=== PATIENT | male | born 1980 | race Caucasian/White ===

== ENCOUNTER 2017-09-12 22:13 | Emergency (ER) | payer OTHER ==
[2017-09-12 22:30] VITALS: RESP 18
[2017-09-12] MEDS ORDERED: diphenhydrAMINE 25 MG CAP PO STA (23:25)
[2017-09-12] MEDS ORDERED: predniSONE 20 MG TAB PO STA (23:25)
--- NOTE | 2017-09-13 00:07 | ED ---
Allergic Reaction HPI - General Chief complaint: Allergic Reaction Stated complaint: eye swelling, poss allergic rxn Time Seen by Provider: 09/12/17 23:04 Source: patient Mode of arrival: ambulatory Limitations: no limitations - History of Present Illness Initial Comments: Patient presents with a chief complaint of possible ALLERGIC reaction. Patient does not a new floor rug that was previously used, but his house, and after playing with his son on the rug he developed swelling of his right eye. Patient states that he has a lot of environmental ALLERGIES including penicillin gravid guinea pigs and he thinks that there may have been dander on the rug. The patient states that he took some Benadryl at home and since that time the swelling has gotten much better. He doesn't describe any pain currently. He cannot identify any other aggravating or alleviating factors. The patient states that overall his symptoms have improved since onset. - Related Data Home Medications Medication Instructions Recorded Confirmed Albuterol Inhaler [Ventolin Hfa 2 puff INHALATION RT-Q6H PRN 05/15/16 09/12/17 Inhaler] Ibuprofen [Motrin] 800 mg PO TID PRN 05/15/16 09/12/17 diphenhydrAMINE HCL [Benadryl] 25 mg PO BID PRN 09/12/17 09/12/17 Previous Rx's Medication Instructions Recorded diphenhydrAMINE [Benadryl] 50 mg PO TID PRN #30 capsule 09/13/17 predniSONE 50 mg PO DAILY #4 tab 09/13/17 Allergies Allergy/AdvReac Type Severity Reaction Status Date / Time No Known Allergies Allergy Verified 09/12/17 22:57 Review of Systems ROS Statement: Those systems with pertinent positive or pertinent negative responses have been documented in the HPI. ROS Other: All systems not noted in ROS Statement are negative. Constitutional: Denies: fever ENT: Denies: throat pain Respiratory: Denies: cough, dyspnea Cardiovascular: Denies: chest pain Gastrointestinal: Denies: abdominal pain, nausea, vomiting Genitourinary: Denies: dysuria Skin: Denies: rash Neurological: Denies: headache Past Medical History Past Medical History: Asthma History of Any Multi-Drug Resistant Organisms: None Reported Past Surgical History: No Surgical Hx Reported Past Psychological History: No Psychological Hx Reported Smoking Status: Current every day smoker Past Alcohol Use History: None Reported Past Drug Use History: None Reported General Exam Limitations: no limitations General appearance: alert, in no apparent distress Head exam: Present: atraumatic, normocephalic Eye exam: Present: PERRL, EOMI, conjunctival injection, periorbital swelling, other (Patient has swelling of the conjunctiva along with periorbital swelling.) ENT exam: Present: normal exam, normal oropharynx, mucous membranes moist Respiratory exam: Present: normal lung sounds bilaterally. Absent: wheezes Cardiovascular Exam: Present: regular rate, normal rhythm GI/Abdominal exam: Present: soft. Absent: distended, tenderness Rectal exam: Present: deferred Neurological exam: Present: alert, oriented X3 Psychiatric exam: Present: normal affect, normal mood Skin exam: Present: warm, dry, intact Course Vital Signs 09/12/17 22:26 Temperature 98.6 F Pulse Rate 88 Respiratory 18 Rate Blood Pressure 142/84 O2 Sat by Pulse 100 Oximetry Medical Decision Making - Medical Decision Making Patient presents with a chief complaint of a possible ALLERGIC reaction. History and physical examination most consistent with contact dermatitis of the right eye. Patient took Benadryl prior to arrival and states that his symptoms are improving. She was given another 25 mg of Benadryl along with 60 mg of prednisone. After a period of observation patient is feeling improved on reevaluation. At this time, patient is stable for discharge. He'll be prescribed Benadryl and prednisone for outpatient use. He was instructed to follow-up with primary care and to avoid his contact allergens. Patient was given explicit signs and symptoms that should prompt a return visit to the emergency department. He states understanding and is stable for discharge. Disposition Clinical Impression: Allergic reaction, Contact dermatitis Disposition: HOME SELF-CARE Condition: Good Instructions: Anaphylaxis (ED) Prescriptions: diphenhydrAMINE [Benadryl] 50 mg PO TID PRN #30 capsule PRN Reason: swelling, itching predniSONE 50 mg PO DAILY #4 tab Referrals: Joe David MD [Primary Care Provider] - 1-2 days
[2017-09-13 00:15] VITALS: BP 123/70; PULSE 60; TEMP 98.2
== END 2017-09-13 00:13 | disposition home or self-care (01) ==
LOC: EC 22:13
DX: L23.9 Allergic contact dermatitis, unspecified cause (principal); F17.200 Nicotine dependence, unspecified, uncomplicated
CPT/HCPCS: 99283; J7512

== ENCOUNTER 2019-10-03 16:41 | Emergency (ER) | payer OTHER ==
[2019-10-03 16:46] VITALS: BP 128/72; PULSE 78; RESP 20; TEMP 97.7
[2019-10-03] MEDS ORDERED: IBUPROFEN 800 MG TAB PO STA (17:07)
--- NOTE | 2019-10-03 17:29 | ED ---
Trauma HPI - General Chief Complaint: Extremity Injury, Upper Stated Complaint: [facility] finger injury Time Seen by Provider: 10/03/19 16:52 Source: patient Mode of arrival: ambulatory Limitations: no limitations - History of Present Illness Initial Comments: She is a 39-year-old male presenting to emergency Department with a chief complaint of finger injury. Patient states he was at work when he was using a pipe to an accident a lateral pressure on top of a tubal which was sitting on top of his right fourth digit. Patient states he has developed a hematoma under the right fourth nail. Patient reports a throbbing pain whenever the hand is below heart level. Patient denies taking medication to alleviate the symptoms. Patient denies any numbness or tingling - Related Data Home Medications Medication Instructions Recorded Confirmed Albuterol Inhaler [Ventolin Hfa 2 puff INHALATION RT-Q6H PRN 05/15/16 09/12/17 Inhaler] Ibuprofen [Motrin] 800 mg PO TID PRN 05/15/16 09/12/17 diphenhydrAMINE HCL [Benadryl] 25 mg PO BID PRN 09/12/17 09/12/17 Previous Rx's Medication Instructions Recorded diphenhydrAMINE [Benadryl] 50 mg PO TID PRN #30 capsule 09/13/17 predniSONE 50 mg PO DAILY #4 tab 09/13/17 Allergies Allergy/AdvReac Type Severity Reaction Status Date / Time No Known Allergies Allergy Verified 10/03/19 16:46 Review of Systems ROS Statement: Those systems with pertinent positive or pertinent negative responses have been documented in the HPI. ROS Other: All systems not noted in ROS Statement are negative. Past Medical History Past Medical History: Asthma History of Any Multi-Drug Resistant Organisms: None Reported Past Surgical History: No Surgical Hx Reported Past Psychological History: No Psychological Hx Reported Smoking Status: Current every day smoker Past Alcohol Use History: None Reported Past Drug Use History: None Reported General Exam Limitations: no limitations General appearance: alert, in no apparent distress Head exam: Present: atraumatic, normocephalic, normal inspection Eye exam: Present: normal appearance, PERRL, EOMI Pupils: Present: normal accommodation ENT exam: Present: normal exam, mucous membranes moist Neck exam: Present: normal inspection, full ROM Respiratory exam: Present: normal lung sounds bilaterally Cardiovascular Exam: Present: regular rate, normal rhythm, normal heart sounds Extremities exam: Present: full ROM, tenderness, normal capillary refill. Absent: normal inspection (Right fourth digit subungual hematoma) Back exam: Present: normal inspection, full ROM Neurological exam: Present: alert, oriented X3 Psychiatric exam: Present: normal affect, normal mood Skin exam: Present: warm, dry, intact, normal color Course Vital Signs 10/03/19 16:44 Temperature 97.7 F Pulse Rate 78 Respiratory 20 Rate Blood Pressure 128/72 O2 Sat by Pulse 99 Oximetry Procedures - Incision & Drainage Consent Obtained: verbal consent Indication: Subungual hematoma Site: hand Size (cm): 1 I&D Cleaning Method: Iodine Sterile Field Used?: No Needle Aspiration Performed?: Yes Irrigation Performed?: Yes I&D Drainage Obtained: Blood Culture Obtained?: No Complications: pain, bleeding Patient Tolerated Procedure: well, no complications Medical Decision Making - Medical Decision Making Patient is a 39-year-old male presenting to the emergency department with a chief complaint of finger injury. On exam patient has a subungual hematoma on the right fourth digit. I was able to drain the hematoma using an 18-gauge needle. The area was sterilized using iodine. Patient tolerated the procedure well. No avulsion of the nail bed. Patient advised to follow with primary care. Strict return parameters were thoroughly discussed with patient was understanding and agreeable. Case discussed with physician. Disposition Clinical Impression: Subungual hematoma of digit of hand Disposition: HOME SELF-CARE Condition: Stable Instructions (If sedation given, give patient instructions): Subungual Hematoma (ED) Additional Instructions: Alternate between Tylenol and Motrin for pain control. Please return to emergency department if symptoms worsen. Is patient prescribed a controlled substance at d/c from ED?: No Referrals: Joe David MD [Primary Care Provider] - 1-2 days Time of Disposition: 17:29
== END 2019-10-03 17:50 | disposition home or self-care (01) ==
LOC: EC 16:41
DX: S60.141A Contusion of right ring finger with damage to nail, initial encounter (principal); J45.909 Unspecified asthma, uncomplicated; F17.200 Nicotine dependence, unspecified, uncomplicated; Z79.899 Other long term (current) drug therapy; X58.XXXA Exposure to other specified factors, initial encounter; Y93.89 Activity, other specified; Y92.69 Other specified industrial and construction area as the place of occurrence of the external cause; Y99.0 Civilian activity done for income or pay
CPT/HCPCS: 11740; 99283

== ENCOUNTER → 2019-10-07 | Outpatient (CLI) | payer OTHER ==
--- NOTE | 2019-10-07 15:40 | XR ---
EXAMINATION TYPE: XR hand complete RT DATE OF EXAM: 10/07/2019 CLINICAL HISTORY: Hand in particular fourth digit pain after crushing injury TECHNIQUE: Frontal, lateral and oblique images of the right hand are obtained. COMPARISON: None. FINDINGS: There is no acute fracture/dislocation evident in the right hand with particular attention to fourth finger at the area of clinical concern. The joint spaces in the right hand appear within n ormal limits. The overlying soft tissue appears unremarkable. IMPRESSION: There is no acute fracture or dislocation in the right hand.
== END | disposition home or self-care (01) ==
LOC: RADXRMAIN 15:12
PROVIDERS: ATTEND Emergency Medicine
DX: S60.141A Contusion of right ring finger with damage to nail, initial encounter (principal)